=== PATIENT | female | born 1975 | race African-American/Black ===

== ENCOUNTER 2018-01-05 10:06 | Inpatient (IN) ==
[2018-01-05] MEDS: LACTATED RINGERS 1,000 ML IV SCH ×2 (11:10→23:23)
[2018-01-05] MEDS: ONDANSETRON 4 MG/2 ML VIAL IV PRN (11:11)
[2018-01-05 11:27] LABS: Basophils % 0.4 % (0.0-0.8); Eosinophils % 0.6 % (0.00-10.9); Hematocrit 39.4 VOL% (35.7-47.0); Hemoglobin 13.9 GM/DL (12.0-16.0); Immature Granulocytes % 0.4 %; Immature Granulocytes Absolute 0.02 #; Lymphocytes # 1.6 10*3/uL (1.4-4.0); Lymphocytes % 33.5 % (21.3-54.2); Mean Corpuscular HGB Conc 35.3 GM/DL (32-36); Mean Corpuscular Hemoglobin 34 PG (27-34); Mean Corpuscular Volume 94.9 FL (87-102); Mean Platelet Volume 10.6 FL (9.6-12.0); Monocytes # 0.4 10*3/uL (0.11-0.8); Monocytes % 8.1 % (1.7-12.7); Neutrophils # 2.7 10*3/uL (1.4-7.4); Platelet Count 285 T/CUMM (130-400); Red Blood Count 4.15 MC/CUMM (3.8-5.5); Red Cell Distribution Width 12.3 % (9.3-17.3); White Blood Count 4.8 T/CUMM (4-12)
[2018-01-05 11:45] LABS: Apearance,Urine Slightly Hazy (Clear); Bacteria,Urine Occasional /HPF (Few); Bilirubin,Urine Negative (Negative); Blood, Urine Negative (Negative); Glucose,Urine (UA) Negative (Negative); Hyaline Casts,Urine 1 /LPF (0-3); Ketones,Urine 80 mg/dL (Negative); Mucus,Urine Occasional /LPF (Occasional); Nitrite,Urine Negative (Negative); Protein,Urine Negative; RBC,Urine 1 /HPF (0-4); Squamous Epithelial Cell,Urine Occasional /HPF (0-10); Urine Color Yellow (Yellow); Urine Specific Gravity 1.017 (1.001-1.035); WBC,Urine 3 /HPF (0-6)
[2018-01-05 11:46] LABS: Albumin 3.9 G/DL (3.4-5.0); Bilirubin,Total 0.6 MG/DL (0.2-1.0); Calcium 9.9 MG/DL (8.5-10.1); Osmolality,Calculated 267.2 MOS/KG (273-304); Potassium 3.3 MMOL/L (3.5-5.1)
[2018-01-05] MEDS ORDERED: ACETAMINOPHEN 325 MG TABLET PO PRN (13:04)
[2018-01-05] MEDS ORDERED: traZODone 50 MG TABLET PO PRN (13:04)
[2018-01-05] MEDS ORDERED: ENOXAPARIN 40 MG/0.4 ML SYRINGE SUBCUT SCH (13:30)
[2018-01-05] MEDS: PANTOPRAZOLE 20 MG TABLET PO SCH (13:50)
[2018-01-05] MEDS: cefTRIAXone 1,000 MG in SYRINGE 1 EACH IV SCH (16:40)
[2018-01-05] MEDS: POTASSIUM CHLORIDE 20 MEQ TABLET PO PRN ×3 (19:51→23:52)
[2018-01-06] MEDS: LACTATED RINGERS 1,000 ML IV SCH ×3 (00:56→20:30)
[2018-01-06] MEDS: ONDANSETRON 4 MG/2 ML VIAL IV PRN ×4 (02:20→23:23)
[2018-01-06 06:55] LABS: Immature Granulocytes Absolute 0.01 #; Monocytes # 0.5 10*3/uL (0.11-0.8)
[2018-01-06 07:12] LABS: Basophils % 0.7 % (0.0-0.8); Eosinophils % 0.7 % (0.00-10.9); Hematocrit 32.9 VOL% (35.7-47.0); Immature Granulocytes % 0.2 %; Lymphocytes # 1.9 10*3/uL (1.4-4.0); Lymphocytes % 44.6 % (21.3-54.2); Mean Corpuscular Hemoglobin 33 PG (27-34); Mean Corpuscular Volume 94.5 FL (87-102); Mean Platelet Volume 10.7 FL (9.6-12.0); Monocytes % 11.1 % (1.7-12.7); Neutrophils # 1.8 10*3/uL (1.4-7.4); Neutrophils % 42.7 % (38.7-73.9); Platelet Count 232 T/CUMM (130-400); Red Blood Count 3.48 MC/CUMM (3.8-5.5); Red Cell Distribution Width 12.2 % (9.3-17.3); White Blood Count 4.2 T/CUMM (4-12)
[2018-01-06 07:13] LABS: Hemoglobin 11.5 GM/DL (12.0-16.0)
[2018-01-06 07:39] LABS: Albumin 3.1 G/DL (3.4-5.0); Bilirubin,Total 0.9 MG/DL (0.2-1.0); Calcium 8.9 MG/DL (8.5-10.1); Osmolality,Calculated 271.8 MOS/KG (273-304); Potassium 3.4 MMOL/L (3.5-5.1); Thyroid Stimulating Hormone 5.74 uIU/ml (0.358-3.74); Total Protein 7.1 G/DL (6.4-8.3)
[2018-01-06] MEDS ORDERED: LIDOCAINE 2% 5 ML VIAL ONE (12:17)
[2018-01-06] MEDS ORDERED: PROPOFOL 200 MG/20 ML VIAL IV ONE (12:17)
[2018-01-06] MEDS ORDERED: ONDANSETRON 4 MG/2 ML VIAL ONE ×2 (12:45→12:54)
[2018-01-06] MEDS: PANTOPRAZOLE 20 MG TABLET PO SCH (13:50)
[2018-01-06] MEDS: cefTRIAXone 1,000 MG in SYRINGE 1 EACH IV SCH (20:30)
[2018-01-07] MEDS: LACTATED RINGERS 1,000 ML IV SCH ×2 (01:52→10:12)
[2018-01-07 06:49] LABS: Basophils % 0.6 % (0.0-0.8); Eosinophils % 1.1 % (0.00-10.9); Hematocrit 31.3 VOL% (35.7-47.0); Immature Granulocytes % 0.3 %; Immature Granulocytes Absolute 0.01 #; Lymphocytes # 1.3 10*3/uL (1.4-4.0); Lymphocytes % 35.8 % (21.3-54.2); Mean Corpuscular HGB Conc 35.1 GM/DL (32-36); Mean Corpuscular Hemoglobin 33 PG (27-34); Mean Corpuscular Volume 94.8 FL (87-102); Mean Platelet Volume 10.6 FL (9.6-12.0); Monocytes # 0.4 10*3/uL (0.11-0.8); Monocytes % 9.6 % (1.7-12.7); Neutrophils # 1.9 10*3/uL (1.4-7.4); Neutrophils % 52.6 % (38.7-73.9); Platelet Count 225 T/CUMM (130-400); Red Cell Distribution Width 12.6 % (9.3-17.3); White Blood Count 3.6 T/CUMM (4-12)
[2018-01-07 07:05] LABS: Calcium 8.9 MG/DL (8.5-10.1); Osmolality,Calculated 272.5 MOS/KG (273-304); Potassium 3.3 MMOL/L (3.5-5.1)
[2018-01-07] MEDS: PANTOPRAZOLE 20 MG TABLET PO SCH (09:01)
[2018-01-07] MEDS ORDERED: MAGNESIUM HYDROXIDE SUSP 30 ML UDCUP PO ONE (09:25)
[2018-01-07] MEDS: DOCUSATE SODIUM 100 MG CAPSULE PO SCH ×2 (09:40→20:38)
[2018-01-07] MEDS: DEXT 5% NACL 0.45% KCL 20 MEQ 20 MEQ/1,000 ML BAG IV SCH ×2 (10:13→20:37)
[2018-01-07] MEDS ORDERED: BISACODYL 10 MG SUPP RECTAL PRN (10:14)
[2018-01-07] MEDS: POTASSIUM CHLORIDE 20 MEQ TABLET PO PRN (10:29)
[2018-01-07 13:11] LABS: Apearance,Urine CLEAR (Clear); Bacteria,Urine Occasional /HPF (Few); Bilirubin,Urine Negative (Negative); Blood, Urine Negative (Negative); Glucose,Urine (UA) Negative (Negative); Ketones,Urine 80 mg/dL (Negative); Mucus,Urine Occasional /LPF (Occasional); Nitrite,Urine Negative (Negative); Protein,Urine Negative; RBC,Urine 3 /HPF (0-4); Squamous Epithelial Cell,Urine Occasional /HPF (0-10); Urine Color Yellow (Yellow); Urine Specific Gravity > 1.060 (1.001-1.035); Urine Urobilinogen < 2.0 EU/DL (0.2-1.0); WBC,Urine 4 /HPF (0-6)
[2018-01-07] MEDS: ONDANSETRON 4 MG/2 ML VIAL IV PRN (16:40)
[2018-01-07] MEDS: MORPHINE 2 MG/1 ML SYRINGE IV PRN (16:40)
[2018-01-07] MEDS: PROMETHAZINE 25 MG/1 ML VIAL IM PRN (18:06)
[2018-01-07] MEDS: clonazePAM 0.5 MG TABLET PO PRN (20:38)
[2018-01-08] MEDS: PROMETHAZINE 25 MG/1 ML VIAL IM PRN ×2 (00:47→23:02)
[2018-01-08] MEDS: MORPHINE 2 MG/1 ML SYRINGE IV PRN ×2 (00:47→18:43)
[2018-01-08] MEDS: DEXT 5% NACL 0.45% KCL 20 MEQ 20 MEQ/1,000 ML BAG IV SCH ×2 (04:54→13:18)
[2018-01-08 06:30] LABS: Basophils % 0.3 % (0.0-0.8); Eosinophils % 1.4 % (0.00-10.9); Hematocrit 30.6 VOL% (35.7-47.0); Hemoglobin 10.9 GM/DL (12.0-16.0); Immature Granulocytes % 0.3 %; Immature Granulocytes Absolute 0.01 #; Lymphocytes # 1.2 10*3/uL (1.4-4.0); Mean Corpuscular HGB Conc 35.6 GM/DL (32-36); Mean Corpuscular Hemoglobin 33 PG (27-34); Mean Corpuscular Volume 93.9 FL (87-102); Mean Platelet Volume 10.2 FL (9.6-12.0); Monocytes # 0.2 10*3/uL (0.11-0.8); Monocytes % 7.7 % (1.7-12.7); Neutrophils # 1.4 10*3/uL (1.4-7.4); Neutrophils % 48.3 % (38.7-73.9); Platelet Count 200 T/CUMM (130-400); Red Blood Count 3.26 MC/CUMM (3.8-5.5); Red Cell Distribution Width 12.4 % (9.3-17.3); White Blood Count 2.9 T/CUMM (4-12)
[2018-01-08 06:50] LABS: Macrocytosis 1+; Platelet Estimate Normal
[2018-01-08 06:56] LABS: Calcium 8.6 MG/DL (8.5-10.1); Osmolality,Calculated 274.5 MOS/KG (273-304); Potassium 3.3 MMOL/L (3.5-5.1)
[2018-01-08] MEDS: PANTOPRAZOLE 40 MG TABLET PO SCH (09:16)
[2018-01-08] MEDS: DOCUSATE SODIUM 100 MG CAPSULE PO SCH (09:16)
[2018-01-08] MEDS: clonazePAM 0.5 MG TABLET PO PRN ×2 (09:16→23:02)
[2018-01-08] MEDS: POTASSIUM CHLORIDE RIDER 10 MEQ in PREMIX 1 EACH IV PRN ×3 (14:38→20:47)
[2018-01-08] MEDS: ONDANSETRON 4 MG/2 ML VIAL IV PRN (21:42)
[2018-01-09] MEDS: MORPHINE 2 MG/1 ML SYRINGE IV PRN ×3 (02:58→23:05)
[2018-01-09 05:45] LABS: Basophils % 0.3 % (0.0-0.8); Eosinophils % 1.2 % (0.00-10.9); Hematocrit 32.3 VOL% (35.7-47.0); Hemoglobin 11.3 GM/DL (12.0-16.0); Lymphocytes # 1.4 10*3/uL (1.4-4.0); Lymphocytes % 43.6 % (21.3-54.2); Mean Corpuscular Hemoglobin 33 PG (27-34); Mean Corpuscular Volume 94.4 FL (87-102); Mean Platelet Volume 10.6 FL (9.6-12.0); Monocytes # 0.2 10*3/uL (0.11-0.8); Monocytes % 7.3 % (1.7-12.7); Neutrophils # 1.6 10*3/uL (1.4-7.4); Neutrophils % 47.6 % (38.7-73.9); Platelet Count 198 T/CUMM (130-400); Red Blood Count 3.42 MC/CUMM (3.8-5.5); Red Cell Distribution Width 12.6 % (9.3-17.3); White Blood Count 3.3 T/CUMM (4-12)
[2018-01-09 06:04] LABS: Calcium 8.5 MG/DL (8.5-10.1); Osmolality,Calculated 279.1 MOS/KG (273-304); Potassium 3.8 MMOL/L (3.5-5.1)
[2018-01-09] MEDS: DEXT 5% NACL 0.45% KCL 20 MEQ 20 MEQ/1,000 ML BAG IV SCH (06:10)
[2018-01-09] MEDS: DOCUSATE SODIUM 100 MG CAPSULE PO SCH ×3 (06:45→21:06)
[2018-01-09] MEDS: PANTOPRAZOLE 40 MG TABLET PO SCH (08:23)
[2018-01-09] MEDS: POTASSIUM CHLORIDE RIDER 10 MEQ in PREMIX 1 EACH IV PRN ×2 (08:23→10:23)
[2018-01-09] MEDS: ONDANSETRON 4 MG/2 ML VIAL IV PRN (11:37)
[2018-01-09] MEDS ORDERED: AMINO ACIDS/DEXT/LYTES 5-15% 2,000 ML IV SCH (17:00)
[2018-01-09] MEDS: FAT EMULSION 20% 250 ML IV SCH (17:29)
[2018-01-10] MEDS: PANTOPRAZOLE 40 MG TABLET PO SCH (09:10)
[2018-01-10] MEDS: DOCUSATE SODIUM 100 MG CAPSULE PO SCH ×2 (09:10→22:14)
[2018-01-10] MEDS: clonazePAM 0.5 MG TABLET PO PRN (09:40)
[2018-01-10] MEDS ORDERED: PROPOFOL 200 MG/20 ML VIAL IV ONE (13:00)
[2018-01-10] MEDS ORDERED: ONDANSETRON 4 MG/2 ML VIAL ONE ×2 (13:00→14:00)
[2018-01-10] MEDS ORDERED: LIDOCAINE 1% 5 ML VIAL ONE (13:00)
[2018-01-10] MEDS ORDERED: LABETALOL 100 MG/20 ML VIAL IV ONE (13:00)
[2018-01-10] MEDS: ONDANSETRON 4 MG/2 ML VIAL IV PRN ×2 (14:00→20:02)
[2018-01-10] MEDS ORDERED: fentaNYL 100 MCG/2 ML VIAL ONE (14:06)
[2018-01-10] MEDS ORDERED: fentaNYL 100 MCG/2 ML VIAL IV ONE (14:12)
[2018-01-10] MEDS: HYDROmorphone 2 MG/1 ML VIAL IV PRN ×2 (15:30→18:26)
[2018-01-10] MEDS ORDERED: DEXTROSE 10% 1,000 ML IV PRN (17:00)
[2018-01-10] MEDS: FAT EMULSION 20% 250 ML IV SCH (17:28)
[2018-01-10] MEDS: MULTIVITAMIN INJ 10 ML, TRACE ELEMENTS (5) 1 ML in AMINO ACIDS/DEXT/LYTES 4.25-5% 2,000 ML IV SCH (17:28)
[2018-01-11] MEDS: HYDROmorphone 2 MG/1 ML VIAL IV PRN (04:37)
[2018-01-11 06:56] LABS: Calcium 8.4 MG/DL (8.5-10.1); Osmolality,Calculated 278.4 MOS/KG (273-304); Potassium 3.7 MMOL/L (3.5-5.1)
[2018-01-11 07:00] LABS: Prealbumin 9.7 MG/DL (20-40)
[2018-01-11] MEDS: PANTOPRAZOLE 40 MG TABLET PO SCH (09:46)
[2018-01-11] MEDS: DOCUSATE SODIUM 100 MG CAPSULE PO SCH ×2 (09:47→22:08)
[2018-01-11] MEDS: MORPHINE 2 MG/1 ML SYRINGE IV PRN ×4 (09:49→22:54)
[2018-01-11] MEDS: MULTIVITAMIN INJ 10 ML, TRACE ELEMENTS (5) 1 ML in AMINO ACIDS/DEXT/LYTES 4.25-5% 2,000 ML IV SCH (14:54)
[2018-01-11] MEDS: ONDANSETRON 4 MG/2 ML VIAL IV PRN ×2 (15:03→22:11)
[2018-01-11] MEDS: FAT EMULSION 20% 250 ML IV SCH (15:29)
[2018-01-11] MEDS: PROMETHAZINE 25 MG/1 ML VIAL IM PRN (18:55)
[2018-01-11] MEDS ORDERED: PANTOPRAZOLE 40 MG VIAL IV ONE (21:48)
[2018-01-12] MEDS: PROMETHAZINE 25 MG/1 ML VIAL IM PRN (02:21)
[2018-01-12] MEDS: MORPHINE 2 MG/1 ML SYRINGE IV PRN ×2 (06:01→16:18)
[2018-01-12] MEDS: ONDANSETRON 4 MG/2 ML VIAL IV PRN ×2 (06:02→12:16)
[2018-01-12] MEDS: DOCUSATE SODIUM 100 MG CAPSULE PO SCH ×2 (09:31→20:51)
[2018-01-12] MEDS ORDERED: HYDROmorphone 2 MG/1 ML VIAL IV PRN (09:36)
[2018-01-12] MEDS: PANTOPRAZOLE 40 MG VIAL IV SCH (11:01)
[2018-01-12] MEDS: HYDROmorphone 2 MG/1 ML VIAL IV PRN ×2 (11:01→18:20)
[2018-01-12] MEDS ORDERED: ONDANSETRON 4 MG/2 ML VIAL ONE (12:12)
[2018-01-12] MEDS ORDERED: fentaNYL 100 MCG/2 ML VIAL ONE ×2 (12:19→14:59)
[2018-01-12] MEDS ORDERED: FAMOTIDINE 20 MG/2 ML VIAL IV ONE (12:27)
[2018-01-12] MEDS ORDERED: LIDOCAINE 1% 5 ML VIAL ONE (13:34)
[2018-01-12] MEDS ORDERED: DEXAMETHASONE 4 MG/1 ML VIAL ONE (13:34)
[2018-01-12] MEDS ORDERED: LABETALOL 100 MG/20 ML VIAL IV ONE (13:34)
[2018-01-12] MEDS ORDERED: PROPOFOL 200 MG/20 ML VIAL IV ONE (13:34)
[2018-01-12] MEDS ORDERED: fentaNYL 100 MCG/2 ML VIAL IV ONE (15:01)
[2018-01-12] MEDS: FAT EMULSION 20% 250 ML IV SCH (15:51)
[2018-01-12] MEDS: MULTIVITAMIN INJ 10 ML, TRACE ELEMENTS (5) 1 ML in AMINO ACIDS/DEXT/LYTES 4.25-5% 2,000 ML IV SCH (15:52)
[2018-01-12] MEDS ORDERED: ceFAZolin 1,000 MG in SYRINGE 1 EACH IV ONE (15:57)
[2018-01-13] MEDS: MORPHINE 2 MG/1 ML SYRINGE IV PRN ×2 (01:25→07:54)
[2018-01-13] MEDS ORDERED: FAMOTIDINE 20 MG TABLET PO ONE (06:00)
[2018-01-13] MEDS ORDERED: DIAZEPAM 5 MG TABLET PO ONE (06:00)
[2018-01-13] MEDS: PANTOPRAZOLE 40 MG VIAL IV SCH (08:00)
[2018-01-13] MEDS: DOCUSATE SODIUM 100 MG CAPSULE PO SCH (08:25)
[2018-01-13] MEDS ORDERED: ACETAMINOPHEN 325 MG/10.15 ML UDCUP PO PRN (09:00)
[2018-01-13] MEDS ORDERED: clonazePAM 0.5 MG TABLET PEG PRN (09:00)
[2018-01-13] MEDS ORDERED: traZODone 50 MG TABLET PEG PRN (09:00)
[2018-01-13] MEDS ORDERED: BUPIVACAINE 0.25% 50 ML VIAL ONE (09:02)
[2018-01-13] MEDS ORDERED: HEPARIN 5,000 UNIT/1 ML VIAL ONE (09:02)
[2018-01-13] MEDS ORDERED: ceFAZolin 1,000 MG in SYRINGE 1 EACH IV ONE (10:30)
[2018-01-13] MEDS: LANSOPRAZOLE ODT 30 MG TABLET PEG SCH (11:24)
[2018-01-13] MEDS: DOCUSATE SODIUM 100 MG/10 ML UDCUP PEG SCH ×2 (11:24→20:39)
[2018-01-13] MEDS ORDERED: TISSUE ADHESIVE 1 EACH APPLICATOR TOP ONE (11:47)
[2018-01-13] MEDS ORDERED: LABETALOL 20 MG/4 ML SYRINGE IV ONE (12:16)
[2018-01-13] MEDS ORDERED: fentaNYL 100 MCG/2 ML VIAL ONE (12:33)
[2018-01-13] MEDS ORDERED: PROPOFOL 200 MG/20 ML VIAL IV ONE (12:33)
[2018-01-13] MEDS ORDERED: MIDAZOLAM 2 MG/2 ML VIAL ONE (12:33)
[2018-01-13] MEDS ORDERED: ONDANSETRON 4 MG/2 ML VIAL ONE (12:33)
[2018-01-13] MEDS ORDERED: SODIUM CHLORIDE 0.9% 100 ML IV ONE (12:34)
[2018-01-13] MEDS: FAT EMULSION 20% 250 ML IV SCH (14:00)
[2018-01-13] MEDS: HYDROcod/ACETAMIN 7.5-325 MG/15 ML UDCUP PEG PRN ×2 (16:13→19:36)
[2018-01-13] MEDS: MULTIVITAMIN INJ 10 ML, TRACE ELEMENTS (5) 1 ML in AMINO ACIDS/DEXT/LYTES 4.25-5% 2,000 ML IV SCH (19:03)
[2018-01-14] MEDS: HYDROcod/ACETAMIN 7.5-325 MG/15 ML UDCUP PEG PRN ×4 (01:14→18:52)
[2018-01-14 04:27] LABS: Calcium 8.4 MG/DL (8.5-10.1); Osmolality,Calculated 278.5 MOS/KG (273-304); Potassium 3.7 MMOL/L (3.5-5.1)
[2018-01-14] MEDS ORDERED: traZODone 50 MG TABLET PO PRN (09:06)
[2018-01-14] MEDS: DOCUSATE SODIUM 100 MG/10 ML UDCUP PEG SCH ×2 (09:07→23:02)
[2018-01-14] MEDS: LANSOPRAZOLE ODT 30 MG TABLET PEG SCH (09:08)
[2018-01-14] MEDS ORDERED: DIAZEPAM 2 MG TABLET PO SCH (09:30)
[2018-01-14] MEDS: ONDANSETRON 4 MG/2 ML VIAL IV PRN ×2 (10:06→16:55)
[2018-01-14] MEDS: DIAZEPAM 2 MG TABLET PEG SCH ×2 (10:08→22:57)
[2018-01-14] MEDS: MULTIVITAMIN INJ 10 ML, TRACE ELEMENTS (5) 1 ML in AMINO ACIDS/DEXT/LYTES 4.25-5% 2,000 ML IV SCH (14:25)
[2018-01-14] MEDS: FAT EMULSION 20% 250 ML IV SCH (14:25)
[2018-01-14] MEDS: PROMETHAZINE 25 MG/1 ML VIAL IM PRN (20:14)
[2018-01-15] MEDS: HYDROcod/ACETAMIN 7.5-325 MG/15 ML UDCUP PEG PRN ×5 (01:08→22:11)
[2018-01-15] MEDS: PROMETHAZINE 25 MG/1 ML VIAL IM PRN (09:17)
[2018-01-15] MEDS: DOCUSATE SODIUM 100 MG/10 ML UDCUP PEG SCH ×2 (09:18→19:59)
[2018-01-15] MEDS: DIAZEPAM 2 MG TABLET PEG SCH ×2 (11:24→22:12)
[2018-01-15] MEDS: LANSOPRAZOLE ODT 30 MG TABLET PEG SCH (11:24)
[2018-01-15] MEDS: MULTIVITAMIN INJ 10 ML, TRACE ELEMENTS (5) 1 ML in AMINO ACIDS/DEXT/LYTES 4.25-5% 2,000 ML IV SCH (12:07)
[2018-01-15] MEDS: ONDANSETRON 4 MG/2 ML VIAL IV PRN ×2 (14:18→19:58)
[2018-01-15] MEDS: FAT EMULSION 20% 250 ML IV SCH (14:20)
[2018-01-16] MEDS: HYDROcod/ACETAMIN 7.5-325 MG/15 ML UDCUP PEG PRN ×4 (03:21→21:12)
[2018-01-16 06:14] LABS: Calcium 8.3 MG/DL (8.5-10.1); Osmolality,Calculated 281.3 MOS/KG (273-304); Potassium 4.5 MMOL/L (3.5-5.1); Prealbumin 15.9 MG/DL (20-40)
[2018-01-16] MEDS: ONDANSETRON 4 MG/2 ML VIAL IV PRN ×2 (08:57→14:21)
[2018-01-16] MEDS: DOCUSATE SODIUM 100 MG/10 ML UDCUP PEG SCH ×3 (08:59→21:28)
[2018-01-16] MEDS: LANSOPRAZOLE ODT 30 MG TABLET PEG SCH (09:00)
[2018-01-16] MEDS: DIAZEPAM 2 MG TABLET PEG SCH ×2 (09:00→21:11)
[2018-01-16] MEDS: MULTIVITAMIN INJ 10 ML, TRACE ELEMENTS (5) 1 ML in AMINO ACIDS/DEXT/LYTES 4.25-5% 2,000 ML IV SCH (10:38)
[2018-01-16] MEDS: FAT EMULSION 20% 250 ML IV SCH (14:10)
[2018-01-17] MEDS: HYDROmorphone 2 MG/1 ML VIAL IV PRN ×3 (00:05→22:57)
[2018-01-17] MEDS: HYDROcod/ACETAMIN 7.5-325 MG/15 ML UDCUP PEG PRN ×2 (09:14→15:25)
[2018-01-17] MEDS: LANSOPRAZOLE ODT 30 MG TABLET PEG SCH (09:15)
[2018-01-17] MEDS: DOCUSATE SODIUM 100 MG/10 ML UDCUP PEG SCH (09:15)
[2018-01-17] MEDS: DIAZEPAM 2 MG TABLET PEG SCH ×2 (09:15→22:57)
[2018-01-17] MEDS ORDERED: DOCUSATE SODIUM 100 MG/10 ML UDCUP PEG PRN (11:00)
[2018-01-17] MEDS: POLYETHYLENE GLYCOL POWDER 17 GM PACK PEG SCH ×2 (13:50→22:56)
[2018-01-18] MEDS: HYDROcod/ACETAMIN 7.5-325 MG/15 ML UDCUP PEG PRN ×4 (02:06→21:14)
[2018-01-18] MEDS: HYDROmorphone 2 MG/1 ML VIAL IV PRN (04:55)
[2018-01-18 06:13] LABS: Calcium 8.3 MG/DL (8.5-10.1); Osmolality,Calculated 275.5 MOS/KG (273-304); Potassium 4.4 MMOL/L (3.5-5.1)
[2018-01-18] MEDS: POLYETHYLENE GLYCOL POWDER 17 GM PACK PEG SCH ×2 (11:40→21:15)
[2018-01-18] MEDS: LANSOPRAZOLE ODT 30 MG TABLET PEG SCH (11:40)
[2018-01-18] MEDS: DIAZEPAM 2 MG TABLET PEG SCH ×2 (11:40→21:24)
[2018-01-18] MEDS: ONDANSETRON 4 MG/2 ML VIAL IV PRN (15:06)
[2018-01-19] MEDS: HYDROcod/ACETAMIN 7.5-325 MG/15 ML UDCUP PEG PRN ×3 (01:05→10:00)
[2018-01-19 06:16] LABS: Calcium 8.8 MG/DL (8.5-10.1); Osmolality,Calculated 274.5 MOS/KG (273-304); Potassium 4.2 MMOL/L (3.5-5.1)
[2018-01-19 07:46] VITALS: BP 147/80
[2018-01-19] MEDS: DIAZEPAM 2 MG TABLET PEG SCH (09:59)
[2018-01-19] MEDS: POLYETHYLENE GLYCOL POWDER 17 GM PACK PEG SCH (09:59)
[2018-01-19] MEDS: LANSOPRAZOLE ODT 30 MG TABLET PEG SCH (09:59)
== END 2018-01-19 11:31 | disposition home health service (06) | DRG 222 ==
LOC: N.OB → SUATTDRO 13:07 → N.2E 14:17 → UNDODISIN 01-16 19:58
PROVIDERS: ADMIT Obstetrics & Gynecology; ATTEND Internal Medicine

== ENCOUNTER 2018-01-25 20:09 | Inpatient (IN) ==
[2018-01-25] MEDS ORDERED: ONDANSETRON 4 MG/2 ML VIAL IV STA ×2 (20:47→22:08)
[2018-01-25] MEDS ORDERED: HYDROmorphone 2 MG/1 ML VIAL IV STA (20:47)
[2018-01-25] MEDS ORDERED: SODIUM CHLORIDE 0.9% 1,000 ML IV STA (20:47)
[2018-01-25] MEDS ORDERED: ONDANSETRON 4 MG/2 ML VIAL ONE ×2 (21:09→21:56)
[2018-01-25] MEDS ORDERED: MORPHINE 2 MG/1 ML SYRINGE IV STA (21:09)
[2018-01-25] MEDS ORDERED: MORPHINE 2 MG/1 ML SYRINGE ONE (21:10)
[2018-01-25 21:19] LABS: Basophils % 0.5 % (0.0-0.8); Eosinophils # 0.1 10*3/uL (0.0-0.87); Hematocrit 34.2 VOL% (35.7-47.0); Hemoglobin 11.5 GM/DL (12.0-16.0); Immature Granulocytes % 0.5 %; Immature Granulocytes Absolute 0.04 #; Lymphocytes # 1.3 10*3/uL (1.4-4.0); Lymphocytes % 16.4 % (21.3-54.2); Mean Corpuscular HGB Conc 33.6 GM/DL (32-36); Mean Corpuscular Hemoglobin 33 PG (27-34); Mean Corpuscular Volume 98.6 FL (87-102); Mean Platelet Volume 9.9 FL (9.6-12.0); Monocytes # 0.6 10*3/uL (0.11-0.8); Monocytes % 6.7 % (1.7-12.7); Neutrophils # 6.1 10*3/uL (1.4-7.4); Neutrophils % 74.9 % (38.7-73.9); Platelet Count 223 T/CUMM (130-400); Red Blood Count 3.47 MC/CUMM (3.8-5.5); Red Cell Distribution Width 14.1 % (9.3-17.3); White Blood Count 8.2 T/CUMM (4-12)
[2018-01-25 21:34] LABS: Apearance,Urine CLOUDY (Clear); Bilirubin,Urine Negative (Negative); Blood, Urine Negative (Negative); Glucose,Urine (UA) Negative (Negative); Ketones,Urine 80 mg/dL (Negative); Mucus,Urine Few /LPF (Occasional); Nitrite,Urine Negative (Negative); Protein,Urine 30 MG/DL; Urine Color Amber (Yellow); Urine Specific Gravity 1.026 (1.001-1.035)
[2018-01-25 21:35] LABS: Bacteria,Urine Few /HPF (Few)
[2018-01-25 21:40] LABS: Barbiturates Screen,Urine Negative (Negative); Benzodiazepines Screen,Urine Positive (Negative); Cannabinoid Screen,Urine Negative (Negative); Opiate Screen,Urine Positive (Negative); Phencyclidine Screen,Urine Negative (Negative)
[2018-01-25 21:47] LABS: Lactic Acid 1.3 MMOL/L (0.4-2.0)
[2018-01-25 21:50] LABS: Alanine Aminotransferase 16 U/L (13-56); Albumin 3.7 G/DL (3.4-5.0); Alkaline Phosphatase 94 U/L (45-117); Amylase 35 U/L (25-115); Aspartate Amino Transferase 16 U/L (0-37); Blood Urea Nitrogen 12 MG/DL (7-18); Calcium 9.3 MG/DL (8.5-10.1); Glucose 89 MG/DL (74-106); Osmolality,Calculated 271.8 MOS/KG (273-304); Potassium 3.5 MMOL/L (3.5-5.1); Sodium 137 MMOL/L (136-145); Total Protein 8.6 G/DL (6.4-8.3); Troponin I Only < 0.015 NG/ML (0.00-0.045)
[2018-01-26] MEDS ORDERED: MORPHINE 2 MG/1 ML SYRINGE IV STA (00:31)
[2018-01-26] MEDS ORDERED: MORPHINE 2 MG/1 ML SYRINGE ONE (00:32)
[2018-01-26] MEDS ORDERED: SODIUM CHLORIDE 0.45% 1,000 ML IV SCH (03:19)
[2018-01-26] MEDS: MORPHINE 2 MG/1 ML SYRINGE IV PRN ×2 (04:31→08:38)
[2018-01-26] MEDS: ONDANSETRON 4 MG/2 ML VIAL IV PRN ×2 (04:34→08:38)
[2018-01-26] MEDS ORDERED: PANTOPRAZOLE 40 MG VIAL IV SCH (09:00)
[2018-01-26 11:29] VITALS: BP 126/97
== END 2018-01-26 12:30 | disposition home or self-care (01) | DRG 240 ==
LOC: N.ED 20:09 → N.EDINP 01-26 01:47 → N.3E 01-26 03:25
PROVIDERS: ADMIT Internal Medicine Hematology & Oncology; ATTEND Internal Medicine Hematology & Oncology

== ENCOUNTER 2018-02-10 10:04 | Inpatient (IN) ==
[2018-02-10] MEDS ORDERED: SODIUM CHLORIDE 0.9% 1,000 ML IV STA (11:04)
[2018-02-10] MEDS ORDERED: PROMETHAZINE 25 MG/1 ML VIAL IV STA (11:04)
[2018-02-10] MEDS ORDERED: MORPHINE 2 MG/1 ML SYRINGE IV STA (11:07)
[2018-02-10] MEDS ORDERED: PROMETHAZINE 25 MG/1 ML VIAL ONE (11:17)
[2018-02-10] MEDS ORDERED: MORPHINE 4 MG/1 ML VIAL ONE (11:21)
[2018-02-10 12:08] LABS: Basophils % 0.2 % (0.0-0.8); Eosinophils % 0.1 % (0.00-10.9); Hematocrit 34.4 VOL% (35.7-47.0); Hemoglobin 11.2 GM/DL (12.0-16.0); Immature Granulocytes % 0.4 %; Immature Granulocytes Absolute 0.04 #; Lymphocytes # 0.9 10*3/uL (1.4-4.0); Lymphocytes % 9.4 % (21.3-54.2); Mean Corpuscular HGB Conc 32.6 GM/DL (32-36); Mean Corpuscular Hemoglobin 32 PG (27-34); Mean Corpuscular Volume 99.4 FL (87-102); Mean Platelet Volume 11.8 FL (9.6-12.0); Monocytes # 0.6 10*3/uL (0.11-0.8); Monocytes % 6.4 % (1.7-12.7); Neutrophils # 7.9 10*3/uL (1.4-7.4); Neutrophils % 83.5 % (38.7-73.9); Platelet Count 235 T/CUMM (130-400); Red Blood Count 3.46 MC/CUMM (3.8-5.5); Red Cell Distribution Width 14.6 % (9.3-17.3); White Blood Count 9.5 T/CUMM (4-12)
[2018-02-10 12:17] LABS: Apearance,Urine CLOUDY (Clear); Bacteria,Urine Occasional /HPF (Few); Bilirubin,Urine Negative (Negative); Blood, Urine Negative (Negative); Glucose,Urine (UA) Negative (Negative); Hyaline Casts,Urine 4 /LPF (0-3); Ketones,Urine 5 mg/dL (Negative); Mucus,Urine Occasional /LPF (Occasional); Nitrite,Urine Negative (Negative); Protein,Urine 100 MG/DL; RBC,Urine 4 /HPF (0-4); Squamous Epithelial Cell,Urine Few /HPF (0-10); Urine Color Amber (Yellow); Urine Specific Gravity 1.031 (1.001-1.035); WBC,Urine 12 /HPF (0-6)
[2018-02-10 12:25] LABS: INR 1.1; Partial Thromboplastin Time 21.7 SECS (0-40)
[2018-02-10 12:29] LABS: Lactic Acid 1.5 MMOL/L (0.4-2.0)
[2018-02-10 12:31] LABS: Albumin 3.7 G/DL (3.4-5.0); Bilirubin,Total 0.6 MG/DL (0.2-1.0); Calcium 9.8 MG/DL (8.5-10.1); Osmolality,Calculated 316.7 MOS/KG (273-304); Potassium 3.1 MMOL/L (3.5-5.1); Total Protein 8.7 G/DL (6.4-8.3)
[2018-02-10 12:35] LABS: Troponin I Only < 0.015 NG/ML (0.00-0.045)
[2018-02-10] MEDS ORDERED: HYDROmorphone 2 MG/1 ML VIAL IV STA (13:28)
[2018-02-10] MEDS ORDERED: HYDROmorphone 2 MG/1 ML VIAL ONE (13:32)
[2018-02-10] MEDS ORDERED: POTASSIUM CHLORIDE RIDER 20 MEQ in PREMIX 1 EACH IV PRN (14:51)
[2018-02-10] MEDS ORDERED: ENOXAPARIN 40 MG/0.4 ML SYRINGE SUBCUT SCH (15:00)
[2018-02-10] MEDS ORDERED: fentaNYL 12 MCG/HR PATCH TRANSDERM SCH (15:30)
[2018-02-10] MEDS: MORPHINE 4 MG/1 ML VIAL IV PRN ×3 (17:00→23:56)
[2018-02-10] MEDS: METOPROLOL TARTRATE 5 MG/5 ML VIAL IV PRN (17:02)
[2018-02-10] MEDS: ONDANSETRON 4 MG/2 ML VIAL IV PRN (17:08)
[2018-02-10] MEDS: SODIUM CHLORIDE 0.45% 1,000 ML IV SCH (17:33)
[2018-02-10] MEDS: ENOXAPARIN 40 MG/0.4 ML SYRINGE SUBCUT SCH (17:36)
[2018-02-10 21:32] LABS: Troponin I Only < 0.015 NG/ML (0.00-0.045)
[2018-02-10] MEDS: POTASSIUM CHLORIDE RIDER 10 MEQ in PREMIX 1 EACH IV PRN (23:56)
[2018-02-11 00:40] LABS: Basophils % 0.3 % (0.0-0.8); Eosinophils % 0.4 % (0.00-10.9); Hematocrit 28.8 VOL% (35.7-47.0); Hemoglobin 9.5 GM/DL (12.0-16.0); Immature Granulocytes % 0.6 %; Immature Granulocytes Absolute 0.05 #; Lymphocytes # 1.1 10*3/uL (1.4-4.0); Lymphocytes % 13.7 % (21.3-54.2); Mean Corpuscular Hemoglobin 32 PG (27-34); Mean Platelet Volume 11.6 FL (9.6-12.0); Monocytes # 0.8 10*3/uL (0.11-0.8); Monocytes % 10.6 % (1.7-12.7); Neutrophils # 5.9 10*3/uL (1.4-7.4); Neutrophils % 74.4 % (38.7-73.9); Platelet Count 205 T/CUMM (130-400); Red Blood Count 2.94 MC/CUMM (3.8-5.5); Red Cell Distribution Width 15.1 % (9.3-17.3); White Blood Count 7.9 T/CUMM (4-12)
[2018-02-11 00:59] LABS: Albumin 3.1 G/DL (3.4-5.0); Bilirubin,Total 0.5 MG/DL (0.2-1.0); Calcium 8.9 MG/DL (8.5-10.1); Osmolality,Calculated 315.6 MOS/KG (273-304); Potassium 2.9 MMOL/L (3.5-5.1); Thyroid Stimulating Hormone 1.54 uIU/ml (0.358-3.74); Total Protein 7.4 G/DL (6.4-8.3)
[2018-02-11 01:07] LABS: Troponin I Only < 0.015 NG/ML (0.00-0.045)
[2018-02-11] MEDS: POTASSIUM CHLORIDE RIDER 10 MEQ in PREMIX 1 EACH IV PRN ×3 (01:35→04:24)
[2018-02-11] MEDS: METOPROLOL TARTRATE 5 MG/5 ML VIAL IV PRN (01:36)
[2018-02-11] MEDS: SODIUM CHLORIDE 0.45% 1,000 ML IV SCH (01:40)
[2018-02-11] MEDS: MORPHINE 4 MG/1 ML VIAL IV PRN ×7 (03:12→22:30)
[2018-02-11] MEDS: ONDANSETRON 4 MG/2 ML VIAL IV PRN ×3 (03:20→22:31)
[2018-02-11 04:28] LABS: Band Neutrophils 1 % (0-10); Eosinophils 1 % (0-10); Lymphocytes 9 % (20-55); Metamyelocytes 2 %; Segmented Neutrophils 82 % (50-85); Total Cells Counted 100
[2018-02-11 04:29] LABS: Polychromasia Few; Target Cells Few
[2018-02-11 04:30] LABS: Hypochromasia 1+; Platelet Estimate Normal
[2018-02-11] MEDS: POTASSIUM CHLORIDE INJ 40 MEQ in DEXTROSE 5% NACL 0.22% 1,000 ML IV SCH ×3 (09:41→22:33)
[2018-02-11] MEDS: PROPRANOLOL 1 MG/1 ML VIAL IV SCH ×3 (09:42→21:25)
[2018-02-11] MEDS ORDERED: HYDROcod/ACETAMIN 7.5-325 MG/15 ML UDCUP PO PRN (12:15)
[2018-02-11] MEDS ORDERED: fentaNYL 25 MCG/HR PATCH TRANSDERM SCH (12:30)
[2018-02-11] MEDS: ENOXAPARIN 40 MG/0.4 ML SYRINGE SUBCUT SCH (16:59)
[2018-02-12] MEDS: MORPHINE 4 MG/1 ML VIAL IV PRN ×3 (01:51→12:01)
[2018-02-12] MEDS: PROPRANOLOL 1 MG/1 ML VIAL IV SCH ×4 (02:40→20:06)
[2018-02-12] MEDS: POTASSIUM CHLORIDE INJ 40 MEQ in DEXTROSE 5% NACL 0.22% 1,000 ML IV SCH ×3 (05:13→18:49)
[2018-02-12 05:23] LABS: Calcium 8.6 MG/DL (8.5-10.1); Osmolality,Calculated 298.4 MOS/KG (273-304)
[2018-02-12] MEDS: fentaNYL 75 MCG/HR PATCH TRANSDERM SCH (13:56)
[2018-02-12] MEDS: MORPHINE 10 MG/1 ML VIAL IV PRN ×3 (15:58→23:55)
[2018-02-12] MEDS: ENOXAPARIN 40 MG/0.4 ML SYRINGE SUBCUT SCH (16:00)
[2018-02-12] MEDS: LORazepam 2 MG/1 ML VIAL IV PRN (20:04)
[2018-02-13] MEDS: POTASSIUM CHLORIDE INJ 40 MEQ in DEXTROSE 5% NACL 0.22% 1,000 ML IV SCH ×2 (01:30→09:03)
[2018-02-13] MEDS: LORazepam 2 MG/1 ML VIAL IV PRN (02:13)
[2018-02-13] MEDS: PROPRANOLOL 1 MG/1 ML VIAL IV SCH ×4 (02:37→21:32)
[2018-02-13 05:16] LABS: Basophils % 0.3 % (0.0-0.8); Eosinophils # 0.1 10*3/uL (0.0-0.87); Eosinophils % 1.4 % (0.00-10.9); Hematocrit 23.9 VOL% (35.7-47.0); Hemoglobin 7.7 GM/DL (12.0-16.0); Immature Granulocytes % 0.9 %; Immature Granulocytes Absolute 0.06 #; Lymphocytes # 1.5 10*3/uL (1.4-4.0); Lymphocytes % 22.8 % (21.3-54.2); Mean Corpuscular HGB Conc 32.2 GM/DL (32-36); Mean Corpuscular Hemoglobin 33 PG (27-34); Mean Corpuscular Volume 101.7 FL (87-102); Mean Platelet Volume 11.5 FL (9.6-12.0); Monocytes # 0.5 10*3/uL (0.11-0.8); Monocytes % 7.9 % (1.7-12.7); Neutrophils # 4.4 10*3/uL (1.4-7.4); Neutrophils % 66.7 % (38.7-73.9); Platelet Count 168 T/CUMM (130-400); Red Blood Count 2.35 MC/CUMM (3.8-5.5); White Blood Count 6.6 T/CUMM (4-12)
[2018-02-13 05:41] LABS: Osmolality,Calculated 287.8 MOS/KG (273-304); Potassium 4.3 MMOL/L (3.5-5.1)
[2018-02-13] MEDS: MORPHINE 10 MG/1 ML VIAL IV PRN ×3 (06:23→18:54)
[2018-02-13] MEDS ORDERED: DEXAMETHASONE INJ 20 MG in SODIUM CHLORIDE 0.9% 50 ML IV ONE (09:50)
[2018-02-13] MEDS: MEPERIDINE 50 MG/1 ML VIAL IV PRN ×2 (10:01→15:22)
[2018-02-13] MEDS ORDERED: PALONOSETRON 0.25 MG/5 ML VIAL IV ONE (10:30)
[2018-02-13] MEDS ORDERED: FOSAPREPITANT 150 MG in SODIUM CHLORIDE 0.9% 100 ML IV ONE (10:30)
[2018-02-13] MEDS ORDERED: FLUOROURACIL 800 MG in SYRINGE 1 EACH IV ONE (11:00)
[2018-02-13] MEDS ORDERED: OXALIPLATIN 170 MG in DEXTROSE 5% 250 ML IV ONE (11:00)
[2018-02-13] MEDS ORDERED: LEUCOVORIN INJ 700 MG, LEUCOVORIN INJ 100 MG in DEXTROSE 5% 250 ML IV ONE (11:00)
[2018-02-13] MEDS: ENOXAPARIN 40 MG/0.4 ML SYRINGE SUBCUT SCH (15:28)
[2018-02-13] MEDS: FLUOROURACIL 1,200 MG in SODIUM CHLORIDE 0.9% 1,000 ML IV SCH (15:47)
[2018-02-14] MEDS: MEPERIDINE 50 MG/1 ML VIAL IV PRN ×5 (02:48→20:43)
[2018-02-14] MEDS: PROPRANOLOL 1 MG/1 ML VIAL IV SCH ×4 (02:48→20:39)
[2018-02-14 06:41] LABS: Basophils % 0.1 % (0.0-0.8); Hematocrit 24.4 VOL% (35.7-47.0); Hemoglobin 7.8 GM/DL (12.0-16.0); Immature Granulocytes % 0.6 %; Immature Granulocytes Absolute 0.06 #; Lymphocytes # 0.5 10*3/uL (1.4-4.0); Lymphocytes % 5.3 % (21.3-54.2); Mean Corpuscular Hemoglobin 32 PG (27-34); Mean Corpuscular Volume 98.8 FL (87-102); Mean Platelet Volume 11.3 FL (9.6-12.0); Monocytes # 0.2 10*3/uL (0.11-0.8); Monocytes % 1.6 % (1.7-12.7); Neutrophils # 8.8 10*3/uL (1.4-7.4); Neutrophils % 92.4 % (38.7-73.9); Platelet Count 172 T/CUMM (130-400); Red Blood Count 2.47 MC/CUMM (3.8-5.5); Red Cell Distribution Width 14.7 % (9.3-17.3); White Blood Count 9.5 T/CUMM (4-12)
[2018-02-14 06:57] LABS: Giant Platelets Few; Hypochromasia 1+; Lymphocytes 4 % (20-55); Ovalocytes Slight; Platelet Estimate Normal; Segmented Neutrophils 91 % (50-85); Total Cells Counted 100
[2018-02-14 07:10] LABS: Albumin 2.2 G/DL (3.4-5.0); Bilirubin,Total 0.7 MG/DL (0.2-1.0); Calcium 8.4 MG/DL (8.5-10.1); Osmolality,Calculated 280.4 MOS/KG (273-304); Potassium 4.7 MMOL/L (3.5-5.1); Total Protein 6.1 G/DL (6.4-8.3)
[2018-02-14] MEDS: POTASSIUM CHLORIDE INJ 40 MEQ in DEXTROSE 5% NACL 0.22% 1,000 ML IV SCH ×4 (07:38→17:17)
[2018-02-14] MEDS: INSULIN REGULAR 100 UNIT/ML SUBCUT SCH ×2 (11:33→18:07)
[2018-02-14] MEDS ORDERED: LYTE IV SCH (12:00)
[2018-02-14] MEDS ORDERED: AMINO ACIDS IV SCH (12:00)
[2018-02-14] MEDS ORDERED: DEXTROSE 10% 1,000 ML IV PRN (12:00)
[2018-02-14] MEDS ORDERED: DEXT IV SCH (12:00)
[2018-02-14] MEDS: FLUOROURACIL 1,200 MG in SODIUM CHLORIDE 0.9% 1,000 ML IV SCH (13:29)
[2018-02-14] MEDS ORDERED: SKIN HEALING OINT (AQUAPHOR) 50 GM TUBE TOP PRN (14:25)
[2018-02-14] MEDS: TRACE ELEMENTS (5) 1 ML, MULTIVITAMIN INJ 10 ML in AMINO ACIDS/DEXT/LYTES 4.25-5% 2,000 ML IV SCH (16:42)
[2018-02-14] MEDS: ENOXAPARIN 40 MG/0.4 ML SYRINGE SUBCUT SCH (17:24)
[2018-02-14] MEDS: LORazepam 2 MG/1 ML VIAL IV PRN (20:38)
[2018-02-14] MEDS: FAT EMULSION 20% 250 ML IV SCH (20:55)
[2018-02-15] MEDS: INSULIN REGULAR 100 UNIT/ML SUBCUT SCH ×4 (01:21→19:13)
[2018-02-15] MEDS: POTASSIUM CHLORIDE INJ 40 MEQ in DEXTROSE 5% NACL 0.22% 1,000 ML IV SCH ×2 (01:23→07:45)
[2018-02-15] MEDS: MEPERIDINE 50 MG/1 ML VIAL IV PRN ×5 (01:48→21:36)
[2018-02-15] MEDS: PROPRANOLOL 1 MG/1 ML VIAL IV SCH ×4 (01:49→21:09)
[2018-02-15 06:55] LABS: Calcium 8.5 MG/DL (8.5-10.1); Osmolality,Calculated 284.3 MOS/KG (273-304); Potassium 4.3 MMOL/L (3.5-5.1)
[2018-02-15] MEDS ORDERED: DIAZEPAM 5 MG TABLET PO ONE (07:57)
[2018-02-15] MEDS: fentaNYL 75 MCG/HR PATCH TRANSDERM SCH (09:21)
[2018-02-15] MEDS: LORazepam 2 MG/1 ML VIAL IV PRN (10:17)
[2018-02-15 10:42] LABS: Hematocrit 23.2 VOL% (35.7-47.0); Hemoglobin 7.7 GM/DL (12.0-16.0); Immature Granulocytes % 0.7 %; Immature Granulocytes Absolute 0.08 #; Lymphocytes # 0.9 10*3/uL (1.4-4.0); Lymphocytes % 8.1 % (21.3-54.2); Mean Corpuscular HGB Conc 33.2 GM/DL (32-36); Mean Corpuscular Hemoglobin 33 PG (27-34); Mean Corpuscular Volume 98.7 FL (87-102); Mean Platelet Volume 11.4 FL (9.6-12.0); Monocytes # 0.4 10*3/uL (0.11-0.8); Monocytes % 3.8 % (1.7-12.7); Neutrophils # 9.6 10*3/uL (1.4-7.4); Neutrophils % 87.4 % (38.7-73.9); Platelet Count 180 T/CUMM (130-400); Red Blood Count 2.35 MC/CUMM (3.8-5.5); Red Cell Distribution Width 15.1 % (9.3-17.3)
[2018-02-15] MEDS: ENOXAPARIN 40 MG/0.4 ML SYRINGE SUBCUT SCH (15:42)
[2018-02-15] MEDS ORDERED: TRACE ELEMENTS (5) 1 ML, MULTIVITAMIN INJ 10 ML in AMINO ACIDS/DEXT/LYTE 4.25-15% 2,000 ML IV SCH (17:00)
[2018-02-15] MEDS: TRACE ELEMENTS (5) 1 ML, MULTIVITAMIN INJ 10 ML in AMINO ACIDS/DEXT/LYTES 4.25-5% 2,000 ML IV SCH (17:42)
[2018-02-15] MEDS: FAT EMULSION 20% 250 ML IV SCH (18:50)
[2018-02-16] MEDS: INSULIN REGULAR 100 UNIT/ML SUBCUT SCH ×4 (01:04→17:49)
[2018-02-16] MEDS: PROPRANOLOL 1 MG/1 ML VIAL IV SCH ×4 (03:19→20:24)
[2018-02-16 05:24] LABS: Calcium 8.1 MG/DL (8.5-10.1); Osmolality,Calculated 276.7 MOS/KG (273-304); Potassium 3.4 MMOL/L (3.5-5.1)
[2018-02-16 06:51] LABS: Basophils % 0.2 % (0.0-0.8); Eosinophils # 0.1 10*3/uL (0.0-0.87); Eosinophils % 0.9 % (0.00-10.9); Hematocrit 23.1 VOL% (35.7-47.0); Hemoglobin 7.7 GM/DL (12.0-16.0); Immature Granulocytes % 0.7 %; Immature Granulocytes Absolute 0.04 #; Lymphocytes # 1.3 10*3/uL (1.4-4.0); Lymphocytes % 22.5 % (21.3-54.2); Mean Corpuscular HGB Conc 33.3 GM/DL (32-36); Mean Corpuscular Hemoglobin 33 PG (27-34); Mean Corpuscular Volume 99.6 FL (87-102); Monocytes # 0.1 10*3/uL (0.11-0.8); Monocytes % 1.9 % (1.7-12.7); Neutrophils # 4.3 10*3/uL (1.4-7.4); Neutrophils % 73.8 % (38.7-73.9); Platelet Count 177 T/CUMM (130-400); Red Blood Count 2.32 MC/CUMM (3.8-5.5); Red Cell Distribution Width 15.1 % (9.3-17.3); White Blood Count 5.8 T/CUMM (4-12)
[2018-02-16] MEDS: ONDANSETRON 4 MG/2 ML VIAL IV PRN ×2 (11:28→17:28)
[2018-02-16] MEDS: POTASSIUM CHLORIDE RIDER 10 MEQ in PREMIX 1 EACH IV PRN ×3 (11:34→14:02)
[2018-02-16] MEDS: ENOXAPARIN 40 MG/0.4 ML SYRINGE SUBCUT SCH (14:05)
[2018-02-16] MEDS: TRACE ELEMENTS (5) 1 ML, MULTIVITAMIN INJ 10 ML in AMINO ACIDS/DEXT/LYTE 4.25-15% 2,000 ML IV SCH (16:51)
[2018-02-16] MEDS: FAT EMULSION 20% 250 ML IV SCH (16:56)
[2018-02-16] MEDS: PROMETHAZINE INJ 25 MG in SODIUM CHLORIDE 0.9% 50 ML IV PRN (20:31)
[2018-02-16] MEDS: MEPERIDINE 50 MG/1 ML VIAL IV PRN (20:40)
[2018-02-17] MEDS: INSULIN REGULAR 100 UNIT/ML SUBCUT SCH ×4 (00:50→17:00)
[2018-02-17] MEDS: PROPRANOLOL 1 MG/1 ML VIAL IV SCH ×4 (03:12→21:20)
[2018-02-17] MEDS: ONDANSETRON 4 MG/2 ML VIAL IV PRN ×3 (03:14→13:11)
[2018-02-17] MEDS: MEPERIDINE 50 MG/1 ML VIAL IV PRN ×3 (03:15→21:43)
[2018-02-17 05:57] LABS: Basophils % 0.2 % (0.0-0.8); Eosinophils # 0.1 10*3/uL (0.0-0.87); Eosinophils % 1.2 % (0.00-10.9); Hematocrit 25.2 VOL% (35.7-47.0); Hemoglobin 8.3 GM/DL (12.0-16.0); Immature Granulocytes % 0.6 %; Immature Granulocytes Absolute 0.03 #; Lymphocytes # 1.2 10*3/uL (1.4-4.0); Lymphocytes % 23.7 % (21.3-54.2); Mean Corpuscular HGB Conc 32.9 GM/DL (32-36); Mean Corpuscular Hemoglobin 32 PG (27-34); Mean Corpuscular Volume 96.2 FL (87-102); Monocytes # 0.1 10*3/uL (0.11-0.8); Monocytes % 1.4 % (1.7-12.7); Neutrophils # 3.6 10*3/uL (1.4-7.4); Neutrophils % 72.9 % (38.7-73.9); Platelet Count 158 T/CUMM (130-400); Red Blood Count 2.62 MC/CUMM (3.8-5.5); Red Cell Distribution Width 14.8 % (9.3-17.3); White Blood Count 4.9 T/CUMM (4-12)
[2018-02-17 06:15] LABS: Calcium 7.8 MG/DL (8.5-10.1); Osmolality,Calculated 278.5 MOS/KG (273-304); Potassium 3.6 MMOL/L (3.5-5.1)
[2018-02-17] MEDS: PROMETHAZINE INJ 25 MG in SODIUM CHLORIDE 0.9% 50 ML IV PRN (10:11)
[2018-02-17] MEDS: POTASSIUM CHLORIDE RIDER 10 MEQ in PREMIX 1 EACH IV PRN (10:50)
[2018-02-17] MEDS: ENOXAPARIN 40 MG/0.4 ML SYRINGE SUBCUT SCH (14:05)
[2018-02-17] MEDS: FAT EMULSION 20% 250 ML IV SCH (14:06)
[2018-02-17] MEDS: TRACE ELEMENTS (5) 1 ML, MULTIVITAMIN INJ 10 ML in AMINO ACIDS/DEXT/LYTE 4.25-15% 2,000 ML IV SCH (14:06)
[2018-02-18] MEDS: INSULIN REGULAR 100 UNIT/ML SUBCUT SCH ×4 (00:54→18:13)
[2018-02-18] MEDS: PROPRANOLOL 1 MG/1 ML VIAL IV SCH ×4 (01:48→21:00)
[2018-02-18] MEDS: MEPERIDINE 50 MG/1 ML VIAL IV PRN ×2 (03:01→18:48)
[2018-02-18 04:47] LABS: Basophils % 0.3 % (0.0-0.8); Eosinophils % 0.5 % (0.00-10.9); Hematocrit 24.1 VOL% (35.7-47.0); Immature Granulocytes % 0.5 %; Immature Granulocytes Absolute 0.02 #; Lymphocytes # 1.1 10*3/uL (1.4-4.0); Lymphocytes % 30.2 % (21.3-54.2); Mean Corpuscular HGB Conc 33.2 GM/DL (32-36); Mean Corpuscular Hemoglobin 32 PG (27-34); Mean Corpuscular Volume 97.6 FL (87-102); Mean Platelet Volume 10.9 FL (9.6-12.0); Monocytes # 0.1 10*3/uL (0.11-0.8); Monocytes % 1.6 % (1.7-12.7); Neutrophils # 2.5 10*3/uL (1.4-7.4); Neutrophils % 66.9 % (38.7-73.9); Platelet Count 137 T/CUMM (130-400); Red Blood Count 2.47 MC/CUMM (3.8-5.5); Red Cell Distribution Width 14.3 % (9.3-17.3); White Blood Count 3.7 T/CUMM (4-12)
[2018-02-18] MEDS: fentaNYL 75 MCG/HR PATCH TRANSDERM SCH (08:59)
[2018-02-18] MEDS: fentaNYL 100 MCG/HR PATCH TRANSDERM SCH (10:40)
[2018-02-18] MEDS: TRACE ELEMENTS (5) 1 ML, MULTIVITAMIN INJ 10 ML in AMINO ACIDS/DEXT/LYTE 4.25-15% 2,000 ML IV SCH (10:40)
[2018-02-18] MEDS: ENOXAPARIN 40 MG/0.4 ML SYRINGE SUBCUT SCH (16:30)
[2018-02-18] MEDS: FAT EMULSION 20% 250 ML IV SCH (16:30)
[2018-02-19] MEDS: MEPERIDINE 50 MG/1 ML VIAL IV PRN ×2 (00:48→08:10)
[2018-02-19] MEDS: INSULIN REGULAR 100 UNIT/ML SUBCUT SCH ×4 (01:03→18:01)
[2018-02-19] MEDS: PROPRANOLOL 1 MG/1 ML VIAL IV SCH ×4 (02:10→20:34)
[2018-02-19] MEDS: TRACE ELEMENTS (5) 1 ML, MULTIVITAMIN INJ 10 ML in AMINO ACIDS/DEXT/LYTE 4.25-15% 2,000 ML IV SCH (07:40)
[2018-02-19 10:31] LABS: Eosinophils % 1.2 % (0.00-10.9); Hematocrit 23.7 VOL% (35.7-47.0); Hemoglobin 7.7 GM/DL (12.0-16.0); Immature Granulocytes % 1.2 %; Immature Granulocytes Absolute 0.04 #; Lymphocytes # 0.9 10*3/uL (1.4-4.0); Lymphocytes % 27.8 % (21.3-54.2); Mean Corpuscular HGB Conc 32.5 GM/DL (32-36); Mean Corpuscular Hemoglobin 32 PG (27-34); Mean Corpuscular Volume 98.3 FL (87-102); Mean Platelet Volume 10.5 FL (9.6-12.0); Monocytes # 0.1 10*3/uL (0.11-0.8); Monocytes % 2.7 % (1.7-12.7); Neutrophils # 2.3 10*3/uL (1.4-7.4); Neutrophils % 67.1 % (38.7-73.9); Platelet Count 119 T/CUMM (130-400); Red Blood Count 2.41 MC/CUMM (3.8-5.5); Red Cell Distribution Width 14.2 % (9.3-17.3); White Blood Count 3.4 T/CUMM (4-12)
[2018-02-19 10:52] LABS: Albumin 2.1 G/DL (3.4-5.0); Bilirubin,Total 0.6 MG/DL (0.2-1.0); Calcium 7.9 MG/DL (8.5-10.1); Osmolality,Calculated 268.4 MOS/KG (273-304); Potassium 3.5 MMOL/L (3.5-5.1); Total Protein 5.6 G/DL (6.4-8.3)
[2018-02-19] MEDS: FAT EMULSION 20% 250 ML IV SCH (14:30)
[2018-02-19] MEDS: ENOXAPARIN 40 MG/0.4 ML SYRINGE SUBCUT SCH (14:30)
[2018-02-20] MEDS: INSULIN REGULAR 100 UNIT/ML SUBCUT SCH ×4 (00:21→17:59)
[2018-02-20] MEDS: MEPERIDINE 50 MG/1 ML VIAL IV PRN ×6 (00:33→23:34)
[2018-02-20] MEDS: PROPRANOLOL 1 MG/1 ML VIAL IV SCH ×4 (01:11→20:59)
[2018-02-20 05:08] LABS: Eosinophils % 0.7 % (0.00-10.9); Hematocrit 23.8 VOL% (35.7-47.0); Hemoglobin 7.9 GM/DL (12.0-16.0); Immature Granulocytes % 1.4 %; Immature Granulocytes Absolute 0.06 #; Lymphocytes % 23.5 % (21.3-54.2); Mean Corpuscular HGB Conc 33.2 GM/DL (32-36); Mean Corpuscular Hemoglobin 32 PG (27-34); Mean Corpuscular Volume 97.1 FL (87-102); Mean Platelet Volume 10.7 FL (9.6-12.0); Monocytes # 0.1 10*3/uL (0.11-0.8); Monocytes % 2.6 % (1.7-12.7); Neutrophils % 71.8 % (38.7-73.9); Platelet Count 126 T/CUMM (130-400); Red Blood Count 2.45 MC/CUMM (3.8-5.5); Red Cell Distribution Width 14.1 % (9.3-17.3); White Blood Count 4.2 T/CUMM (4-12)
[2018-02-20 05:34] LABS: Calcium 8.1 MG/DL (8.5-10.1); Potassium 3.7 MMOL/L (3.5-5.1)
[2018-02-20] MEDS: TRACE ELEMENTS (5) 1 ML, MULTIVITAMIN INJ 10 ML in AMINO ACIDS/DEXT/LYTE 4.25-15% 2,000 ML IV SCH ×2 (05:37→15:36)
[2018-02-20] MEDS: FAT EMULSION 20% 250 ML IV SCH (14:27)
[2018-02-20] MEDS: ENOXAPARIN 40 MG/0.4 ML SYRINGE SUBCUT SCH (17:14)
[2018-02-21] MEDS: TRACE ELEMENTS (5) 1 ML, MULTIVITAMIN INJ 10 ML in AMINO ACIDS/DEXT/LYTE 4.25-15% 2,000 ML IV SCH (01:04)
[2018-02-21] MEDS: INSULIN REGULAR 100 UNIT/ML SUBCUT SCH ×3 (01:06→11:22)
[2018-02-21] MEDS: PROPRANOLOL 1 MG/1 ML VIAL IV SCH ×2 (02:55→08:50)
[2018-02-21] MEDS: MEPERIDINE 50 MG/1 ML VIAL IV PRN ×2 (05:32→11:26)
[2018-02-21] MEDS: fentaNYL 100 MCG/HR PATCH TRANSDERM SCH (08:51)
[2018-02-21] MEDS: ONDANSETRON 4 MG/2 ML VIAL IV PRN (11:34)
[2018-02-21 11:49] VITALS: BP 124/80
[2018-02-21] MEDS: MORPHINE 10 MG/1 ML VIAL IV PRN (13:17)
== END 2018-02-21 13:29 | disposition home health service (06) | DRG 240 ==
LOC: N.ED 10:04 → SUATTDRO 14:45 → N.EDINP 14:45 → N.4E 16:41
PROVIDERS: ADMIT Internal Medicine Cardiovascular Disease; ATTEND Family Medicine
PROC: [UNRECOGNIZED PROCEDURE] (2018-02-15 09:35)

== ENCOUNTER 2018-02-24 11:38 | Observation (INO) ==
[2018-02-24] MEDS ORDERED: PANTOPRAZOLE 40 MG VIAL IV STA (12:01)
[2018-02-24] MEDS ORDERED: SODIUM CHLORIDE 0.9% 1,000 ML IV STA (12:01)
[2018-02-24] MEDS ORDERED: ONDANSETRON 4 MG/2 ML VIAL IV STA ×3 (12:01→15:00)
[2018-02-24] MEDS ORDERED: ONDANSETRON 4 MG/2 ML VIAL ONE ×3 (12:16→15:02)
[2018-02-24] MEDS ORDERED: PANTOPRAZOLE 40 MG VIAL IV ONE (12:16)
[2018-02-24 12:43] LABS: Basophils % 0.6 % (0.0-0.8); Eosinophils % 0.6 % (0.00-10.9); Hematocrit 26.2 VOL% (35.7-47.0); Hemoglobin 8.7 GM/DL (12.0-16.0); Immature Granulocytes % 0.6 %; Immature Granulocytes Absolute 0.01 #; Lymphocytes # 0.7 10*3/uL (1.4-4.0); Lymphocytes % 40.7 % (21.3-54.2); Mean Corpuscular HGB Conc 33.2 GM/DL (32-36); Mean Corpuscular Hemoglobin 32 PG (27-34); Mean Platelet Volume 11.2 FL (9.6-12.0); Monocytes # 0.3 10*3/uL (0.11-0.8); Monocytes % 17.9 % (1.7-12.7); Neutrophils # 0.6 10*3/uL (1.4-7.4); Neutrophils % 39.6 % (38.7-73.9); Platelet Count 197 T/CUMM (130-400); Red Blood Count 2.73 MC/CUMM (3.8-5.5); Red Cell Distribution Width 14.6 % (9.3-17.3); White Blood Count 1.6 T/CUMM (4-12)
[2018-02-24 12:57] LABS: Alanine Aminotransferase 21 U/L (13-56); Albumin 2.4 G/DL (3.4-5.0); Alkaline Phosphatase 148 U/L (45-117); Aspartate Amino Transferase 17 U/L (0-37); Blood Urea Nitrogen 12 MG/DL (7-18); Calcium 8.5 MG/DL (8.5-10.1); Glucose 147 MG/DL (74-106); INR 1.2; Osmolality,Calculated 262.8 MOS/KG (273-304); PT Patient Result 12.6 SECS; Partial Thromboplastin Time 26.9 SECS (0-40); Potassium 3.6 MMOL/L (3.5-5.1); Sodium 130 MMOL/L (136-145); Total Protein 6.9 G/DL (6.4-8.3); Troponin I Only < 0.015 NG/ML (0.00-0.045)
[2018-02-24] MEDS ORDERED: MORPHINE 4 MG/1 ML VIAL IV STA (13:08)
[2018-02-24] MEDS ORDERED: MORPHINE 4 MG/1 ML VIAL ONE (13:11)
[2018-02-24] MEDS ORDERED: HYDROmorphone 2 MG/1 ML VIAL IV STA (15:00)
[2018-02-24] MEDS ORDERED: ONDANSETRON 4 MG/2 ML VIAL IV PRN (15:01)
[2018-02-24] MEDS ORDERED: HYDROmorphone 2 MG/1 ML VIAL ONE (15:02)
[2018-02-24 15:23] LABS: Band Neutrophils 3 % (0-10); Eosinophils 3 % (0-10); Lymphocytes 28 % (20-55); Nucleated Red Blood Cells 1 (0-5); Platelet Estimate Adequate; Polychromasia Slight; Segmented Neutrophils 39 % (50-85); Total Cells Counted 100
[2018-02-24] MEDS ORDERED: fentaNYL 100 MCG/HR PATCH TRANSDERM SCH (15:30)
[2018-02-24] MEDS ORDERED: fentaNYL 25 MCG/HR PATCH TRANSDERM SCH (15:30)
[2018-02-24] MEDS ORDERED: HYDROmorphone 2 MG/1 ML VIAL IV SCH (15:30)
[2018-02-24] MEDS ORDERED: MORPHINE 10 MG/5 ML UDCUP PO PRN (15:37)
[2018-02-24] MEDS: HYDROmorphone 2 MG/1 ML VIAL IV PRN ×3 (17:15→21:21)
[2018-02-25] MEDS: HYDROmorphone 2 MG/1 ML VIAL IV PRN ×9 (00:27→20:50)
[2018-02-25] MEDS ORDERED: DEXTROSE 10% 1,000 ML IV PRN (07:55)
[2018-02-25] MEDS: LORazepam 2 MG/1 ML VIAL IV PRN (11:32)
[2018-02-25] MEDS ORDERED: SODIUM CHLORIDE 0.9% 1,000 ML IV ONE (11:43)
[2018-02-25] MEDS ORDERED: fentaNYL 25 MCG/HR PATCH TRANSDERM SCH (12:00)
[2018-02-25] MEDS ORDERED: fentaNYL 100 MCG/HR PATCH TRANSDERM SCH (12:00)
[2018-02-25] MEDS: MORPHINE 10 MG/5 ML UDCUP PO SCH ×4 (13:02→20:46)
[2018-02-25] MEDS: TRACE ELEMENTS (5) 1 ML, MULTIVITAMIN INJ 10 ML in AMINO ACIDS/DEXT/LYTE 4.25-15% 2,000 ML IV SCH (14:21)
[2018-02-25] MEDS: FAT EMULSION 20% 250 ML IV SCH (14:22)
[2018-02-26] MEDS: HYDROmorphone 2 MG/1 ML VIAL IV PRN ×3 (00:15→16:00)
[2018-02-26] MEDS: LORazepam 2 MG/1 ML VIAL IV PRN (02:34)
[2018-02-26] MEDS: MORPHINE 10 MG/5 ML UDCUP PO SCH ×3 (05:47→13:28)
[2018-02-26] MEDS ORDERED: fentaNYL 25 MCG/HR PATCH TRANSDERM SCH (10:00)
[2018-02-26] MEDS ORDERED: fentaNYL 50 MCG/HR PATCH TRANSDERM SCH (10:00)
[2018-02-26] MEDS: TRACE ELEMENTS (5) 1 ML, MULTIVITAMIN INJ 10 ML in AMINO ACIDS/DEXT/LYTE 4.25-15% 2,000 ML IV SCH (12:29)
[2018-02-26] MEDS: FAT EMULSION 20% 250 ML IV SCH (14:46)
[2018-02-26] MEDS: MORPHINE 10 MG/5 ML UDCUP PO PRN ×2 (18:03→21:09)
[2018-02-27] MEDS: LORazepam 2 MG/1 ML VIAL IV PRN (00:45)
[2018-02-27] MEDS: HYDROmorphone 2 MG/1 ML VIAL IV PRN ×3 (00:45→13:15)
[2018-02-27 06:08] LABS: Calcium 8.9 MG/DL (8.5-10.1); Osmolality,Calculated 256.4 MOS/KG (273-304); Potassium 3.6 MMOL/L (3.5-5.1); Prealbumin 10.2 MG/DL (20-40)
[2018-02-27] MEDS ORDERED: SODIUM CHLORIDE 0.9% 1,000 ML IV ONE (09:05)
[2018-02-27 12:04] VITALS: BP 115/63
[2018-02-27] MEDS: TRACE ELEMENTS (5) 1 ML, MULTIVITAMIN INJ 10 ML in AMINO ACIDS/DEXT/LYTE 4.25-15% 2,000 ML IV SCH (14:55)
[2018-02-27] MEDS: FAT EMULSION 20% 250 ML IV SCH (14:56)
== END 2018-02-27 14:40 | disposition home health service (06) ==
LOC: EDUNIT# → EDBD → N.ED 11:38 → N.EDINP 11:38 → SUATTDRO 15:01 → N.4E 16:00
PROVIDERS: ADMIT Family Medicine; ATTEND Internal Medicine

== ENCOUNTER 2018-03-03 16:14 | Inpatient (IN) ==
[2018-03-03] MEDS ORDERED: PIPERACILLIN/TAZOBACTAM 3,375 MG in SODIUM CHLORIDE 0.9% 100 ML IV STA (17:17)
[2018-03-03] MEDS ORDERED: VANCOMYCIN INJ 1,250 MG in SODIUM CHLORIDE 0.9% 250 ML IV STA (17:17)
[2018-03-03] MEDS ORDERED: SODIUM CHLORIDE 0.9% 2,000 ML IV STA (17:17)
[2018-03-03] MEDS ORDERED: PIPERACILLIN/TAZOBACTAM 3,375 MG VIAL IV ONE (17:39)
[2018-03-03] MEDS ORDERED: VANCOMYCIN 1,000 MG VIAL ONE (17:39)
[2018-03-03 18:10] LABS: Basophils # 0.1 10*3/uL (0.0-0.2); Basophils % 0.3 % (0.0-0.8); Hematocrit 19.7 VOL% (35.7-47.0); Hemoglobin 6.9 GM/DL (12.0-16.0); Immature Granulocytes % 4.1 %; Immature Granulocytes Absolute 1.11 #; Lymphocytes # 0.6 10*3/uL (1.4-4.0); Lymphocytes % 2.2 % (21.3-54.2); Mean Corpuscular Hemoglobin 31 PG (27-34); Mean Corpuscular Volume 87.6 FL (87-102); Monocytes # 1.4 10*3/uL (0.11-0.8); Monocytes % 5.1 % (1.7-12.7); NRBC # 0.08 10*3/uL; Neutrophils # 23.8 10*3/uL (1.4-7.4); Neutrophils % 88.3 % (38.7-73.9); Platelet Count 125 T/CUMM (130-400); Red Blood Count 2.25 MC/CUMM (3.8-5.5); Red Cell Distribution Width 15.2 % (9.3-17.3); White Blood Count 26.9 T/CUMM (4-12)
[2018-03-03 18:29] LABS: Lactic Acid 3.3 MMOL/L (0.4-2.0)
[2018-03-03 18:30] LABS: Alanine Aminotransferase 133 U/L (13-56); Albumin 1.8 G/DL (3.4-5.0); Alkaline Phosphatase 262 U/L (45-117); Aspartate Amino Transferase 175 U/L (0-37); Blood Urea Nitrogen 38 MG/DL (7-18); Calcium 8.2 MG/DL (8.5-10.1); Glucose 103 MG/DL (74-106); Osmolality,Calculated 265.1 MOS/KG (273-304); Potassium 2.7 MMOL/L (3.5-5.1); Sodium 128 MMOL/L (136-145); Total Protein 6.9 G/DL (6.4-8.3)
[2018-03-03 18:48] LABS: Band Neutrophils 2 % (0-10); Lymphocytes 3 % (20-55); Total Cells Counted 100
[2018-03-03 18:49] LABS: Hypochromasia 2+; Ovalocytes 1+; Platelet Estimate Decreased; Segmented Neutrophils 90 % (50-85); Target Cells 1+
[2018-03-03] MEDS ORDERED: SODIUM CHLORIDE 0.9% 1,000 ML IV ONE (19:32)
[2018-03-03] MEDS ORDERED: ACETAMINOPHEN 325 MG TABLET PO PRN (19:32)
[2018-03-03] MEDS ORDERED: MORPHINE 4 MG/1 ML VIAL IV PRN (19:37)
[2018-03-03] MEDS ORDERED: MAGNESIUM SULF RIDER 2 GM in PREMIX 1 EACH IV PRN (19:46)
[2018-03-03] MEDS ORDERED: MAGNESIUM SULF RIDER 4 GM in PREMIX 1 EACH IV PRN (19:46)
[2018-03-03] MEDS ORDERED: SODIUM CHLORIDE 0.9% 1,000 ML IV PRN (19:51)
[2018-03-03 20:03] LABS: Urine Color Orange (Yellow)
[2018-03-03 20:04] LABS: Apearance,Urine Clear (Clear); Bilirubin,Urine 4 mg/dL (Negative); Blood, Urine Negative (Negative); Glucose,Urine (UA) 50 mg/dL (Negative); Ketones,Urine Negative (Negative); Nitrite,Urine Negative (Negative); Protein,Urine 30 MG/DL
[2018-03-03 20:05] LABS: Bacteria,Urine Few /HPF (Few); RBC,Urine 0-1 /HPF (0-4); WBC,Urine 0-2 /HPF (0-6)
[2018-03-03] MEDS ORDERED: ONDANSETRON 4 MG/2 ML VIAL ONE (20:56)
[2018-03-03] MEDS ORDERED: ENOXAPARIN 30 MG/0.3 ML SYRINGE ONE (20:57)
[2018-03-03] MEDS ORDERED: MORPHINE 4 MG/1 ML VIAL ONE (20:57)
[2018-03-03] MEDS: ONDANSETRON 4 MG/2 ML VIAL IV PRN (21:10)
[2018-03-03] MEDS: SODIUM CHLORIDE 0.9% 1,000 ML IV SCH (21:13)
[2018-03-03] MEDS ORDERED: FLUCONAZOLE INJ 400 MG in PREMIX 1 EACH IV SCH (22:00)
[2018-03-03 22:29] LABS: Lactic Acid 2.3 MMOL/L (0.4-2.0)
[2018-03-03] MEDS ORDERED: ENOXAPARIN 100 MG/ML SYRINGE SUBCUT ONE (22:50)
[2018-03-03] MEDS: HYDROmorphone 2 MG/1 ML VIAL IV PRN (23:24)
[2018-03-04] MEDS: PIPERACILLIN/TAZOBACTAM 3,375 MG in SODIUM CHLORIDE 0.9% 100 ML IV SCH ×3 (00:36→17:54)
[2018-03-04 01:28] LABS: Basophils # 0.1 10*3/uL (0.0-0.2); Basophils % 0.3 % (0.0-0.8); Immature Granulocytes % 3.8 %; Immature Granulocytes Absolute 1.19 #; Lymphocytes # 0.8 10*3/uL (1.4-4.0); Lymphocytes % 2.4 % (21.3-54.2); Mean Corpuscular HGB Conc 34.5 GM/DL (32-36); Mean Corpuscular Hemoglobin 30 PG (27-34); Mean Corpuscular Volume 88.1 FL (87-102); Mean Platelet Volume 12.9 FL (9.6-12.0); Monocytes # 1.6 10*3/uL (0.11-0.8); NRBC # 0.06 10*3/uL; Neutrophils # 27.6 10*3/uL (1.4-7.4); Neutrophils % 88.5 % (38.7-73.9); Platelet Count 107 T/CUMM (130-400); Red Blood Count 1.94 MC/CUMM (3.8-5.5); Red Cell Distribution Width 15.4 % (9.3-17.3); White Blood Count 31.1 T/CUMM (4-12)
[2018-03-04 01:32] LABS: Hemoglobin 5.9 GM/DL (12.0-16.0)
[2018-03-04 01:33] LABS: Hematocrit 17.1 VOL% (35.7-47.0)
[2018-03-04 02:00] LABS: Albumin 1.5 G/DL (3.4-5.0); Bilirubin,Total 3.6 MG/DL (0.2-1.0); Calcium 7.1 MG/DL (8.5-10.1); Osmolality,Calculated 274.2 MOS/KG (273-304); Potassium 2.8 MMOL/L (3.5-5.1); Total Protein 5.8 G/DL (6.4-8.3)
[2018-03-04 02:07] LABS: Band Neutrophils 2 % (0-10); Lymphocytes 12 % (20-55); Platelet Estimate Decreased; Segmented Neutrophils 84 % (50-85); Total Cells Counted 100
[2018-03-04] MEDS: MORPHINE 4 MG/1 ML VIAL IV PRN ×2 (04:02→13:35)
[2018-03-04] MEDS: SODIUM CHLORIDE 0.9% 1,000 ML IV SCH ×2 (05:40→14:15)
[2018-03-04] MEDS: PANTOPRAZOLE 40 MG VIAL IV SCH (08:42)
[2018-03-04] MEDS ORDERED: VANCOMYCIN INJ 1,000 MG in SODIUM CHLORIDE 0.9% 250 ML IV ONE (10:30)
[2018-03-04] MEDS: HYDROmorphone 2 MG/1 ML VIAL IV PRN ×2 (10:39→18:33)
[2018-03-04] MEDS ORDERED: CALCIUM GLUCONATE 1,000 MG in SODIUM CHLORIDE 0.9% 100 ML IV ONE (11:00)
[2018-03-04] MEDS: VANCOMYCIN INJ 1,000 MG in SODIUM CHLORIDE 0.9% 250 ML IV SCH (12:33)
[2018-03-04] MEDS: POTASSIUM CHLORIDE RIDER 10 MEQ in PREMIX 1 EACH IV PRN ×5 (14:52→23:30)
[2018-03-04] MEDS ORDERED: ENOXAPARIN 40 MG/0.4 ML SYRINGE SUBCUT SCH (20:00)
[2018-03-05] MEDS: VANCOMYCIN INJ 1,000 MG in SODIUM CHLORIDE 0.9% 250 ML IV SCH (00:43)
[2018-03-05] MEDS: MORPHINE 4 MG/1 ML VIAL IV PRN (01:26)
[2018-03-05] MEDS: PIPERACILLIN/TAZOBACTAM 3,375 MG in SODIUM CHLORIDE 0.9% 100 ML IV SCH ×3 (02:25→18:39)
[2018-03-05] MEDS: HYDROmorphone 2 MG/1 ML VIAL IV PRN ×3 (03:55→15:54)
[2018-03-05 04:50] LABS: Basophils # 0.1 10*3/uL (0.0-0.2); Basophils % 0.3 % (0.0-0.8); Hematocrit 25.2 VOL% (35.7-47.0); Hemoglobin 8.9 GM/DL (12.0-16.0); Immature Granulocytes Absolute 0.79 #; Lymphocytes # 0.8 10*3/uL (1.4-4.0); Mean Corpuscular HGB Conc 35.3 GM/DL (32-36); Mean Corpuscular Hemoglobin 31 PG (27-34); Mean Corpuscular Volume 86.3 FL (87-102); Monocytes # 1.6 10*3/uL (0.11-0.8); NRBC # 0.05 10*3/uL; Neutrophils # 23.3 10*3/uL (1.4-7.4); Neutrophils % 87.7 % (38.7-73.9); Platelet Count 109 T/CUMM (130-400); Red Blood Count 2.92 MC/CUMM (3.8-5.5); White Blood Count 26.5 T/CUMM (4-12)
[2018-03-05 05:12] LABS: Band Neutrophils 1 % (0-10); Giant Platelets Few; Hypochromasia 1+; Lymphocytes 1 % (20-55); Ovalocytes Slight; Platelet Estimate Decreased; Segmented Neutrophils 94 % (50-85); Target Cells Few; Total Cells Counted 100
[2018-03-05 05:36] LABS: Albumin 1.4 G/DL (3.4-5.0); Bilirubin,Total 4.6 MG/DL (0.2-1.0); Calcium 7.8 MG/DL (8.5-10.1); Potassium 3.5 MMOL/L (3.5-5.1)
[2018-03-05] MEDS ORDERED: HEPARIN LOCK FLUSH 500 UNIT/5 ML SYRINGE IV ONE (10:17)
[2018-03-05] MEDS: PANTOPRAZOLE 40 MG VIAL IV SCH (10:29)
[2018-03-05] MEDS: ONDANSETRON 4 MG/2 ML VIAL IV PRN (18:31)
[2018-03-05] MEDS: SODIUM CHLORIDE 0.9% 1,000 ML IV SCH (18:39)
[2018-03-05] MEDS: fentaNYL 100 MCG/2 ML VIAL IV PRN ×2 (21:11→23:28)
[2018-03-06] MEDS: PIPERACILLIN/TAZOBACTAM 3,375 MG in SODIUM CHLORIDE 0.9% 100 ML IV SCH ×2 (01:05→08:46)
[2018-03-06] MEDS: fentaNYL 100 MCG/2 ML VIAL IV PRN ×5 (03:02→23:10)
[2018-03-06 05:15] LABS: Basophils # 0.1 10*3/uL (0.0-0.2); Basophils % 0.2 % (0.0-0.8); Hematocrit 27.3 VOL% (35.7-47.0); Hemoglobin 9.4 GM/DL (12.0-16.0); Immature Granulocytes % 2.7 %; Immature Granulocytes Absolute 0.56 #; Mean Corpuscular HGB Conc 34.4 GM/DL (32-36); Mean Corpuscular Hemoglobin 30 PG (27-34); Mean Corpuscular Volume 87.8 FL (87-102); Mean Platelet Volume 13.1 FL (9.6-12.0); Monocytes # 1.5 10*3/uL (0.11-0.8); Monocytes % 7.3 % (1.7-12.7); NRBC # 0.05 10*3/uL; Neutrophils # 17.7 10*3/uL (1.4-7.4); Neutrophils % 84.8 % (38.7-73.9); Platelet Count 167 T/CUMM (130-400); Red Blood Count 3.11 MC/CUMM (3.8-5.5); Red Cell Distribution Width 16.3 % (9.3-17.3); White Blood Count 20.9 T/CUMM (4-12)
[2018-03-06] MEDS ORDERED: LORazepam 2 MG/1 ML VIAL IV ONE (05:30)
[2018-03-06 05:40] LABS: Band Neutrophils 5 % (0-10); Lymphocytes 6 % (20-55); Segmented Neutrophils 83 % (50-85); Total Cells Counted 100
[2018-03-06 05:41] LABS: Platelet Estimate Normal; Target Cells 1+
[2018-03-06 05:46] LABS: Calcium 8.3 MG/DL (8.5-10.1); Osmolality,Calculated 288.7 MOS/KG (273-304); Potassium 3.4 MMOL/L (3.5-5.1)
[2018-03-06] MEDS: SODIUM CHLORIDE 0.9% 1,000 ML IV SCH ×2 (05:49→19:26)
[2018-03-06] MEDS: PANTOPRAZOLE 40 MG VIAL IV SCH (08:48)
[2018-03-06] MEDS ORDERED: fentaNYL 100 MCG/HR PATCH TRANSDERM SCH (09:00)
[2018-03-06] MEDS ORDERED: fentaNYL 25 MCG/HR PATCH TRANSDERM SCH (09:00)
[2018-03-06] MEDS: CIPROFLOXACIN INJ 400 MG in PREMIX 1 EACH IV SCH ×2 (13:06→20:42)
[2018-03-07] MEDS: ONDANSETRON 4 MG/2 ML VIAL IV PRN ×2 (00:38→05:41)
[2018-03-07] MEDS: fentaNYL 100 MCG/2 ML VIAL IV PRN ×2 (03:35→05:40)
[2018-03-07] MEDS: SODIUM CHLORIDE 0.9% 1,000 ML IV SCH ×3 (04:18→22:04)
[2018-03-07] MEDS ORDERED: HYDROmorphone 2 MG/1 ML VIAL IV PRN (08:31)
[2018-03-07] MEDS ORDERED: fentaNYL 100 MCG/2 ML VIAL IV PRN (08:31)
[2018-03-07] MEDS ORDERED: LORazepam 2 MG/1 ML VIAL IV PRN (08:43)
[2018-03-07] MEDS ORDERED: NALOXONE 0.4 MG/ML VIAL IV PRN ×2 (08:46→11:41)
[2018-03-07] MEDS: PANTOPRAZOLE 40 MG VIAL IV SCH (08:53)
[2018-03-07] MEDS: CIPROFLOXACIN INJ 400 MG in PREMIX 1 EACH IV SCH (08:56)
[2018-03-07] MEDS ORDERED: MORPHINE PCA 30 MG/30 ML SYRINGE IV SCH (12:00)
[2018-03-07] MEDS: LORazepam 2 MG/1 ML VIAL IV PRN (12:50)
[2018-03-07] MEDS: MORPHINE PCA 30 MG/30 ML SYRINGE IV SCH (14:39)
[2018-03-07] MEDS ORDERED: ACETAMINOPHEN 650 MG SUPP RECTAL PRN (16:04)
[2018-03-08] MEDS: MORPHINE PCA 30 MG/30 ML SYRINGE IV SCH ×3 (04:20→17:00)
[2018-03-08] MEDS: SODIUM CHLORIDE 0.9% 1,000 ML IV SCH ×3 (06:07→20:44)
[2018-03-08] MEDS: LORazepam 2 MG/1 ML VIAL IV PRN (18:59)
[2018-03-09] MEDS: LORazepam 2 MG/1 ML VIAL IV PRN ×2 (03:08→09:34)
[2018-03-09] MEDS: SODIUM CHLORIDE 0.9% 1,000 ML IV SCH (05:01)
[2018-03-09] MEDS: MORPHINE PCA 30 MG/30 ML SYRINGE IV SCH ×3 (06:18→16:13)
[2018-03-09] MEDS ORDERED: MORPHINE PCA 30 MG/30 ML SYRINGE IV SCH (08:40)
[2018-03-09] MEDS ORDERED: fentaNYL 100 MCG/HR PATCH TRANSDERM SCH (11:00)
[2018-03-09] MEDS ORDERED: fentaNYL 25 MCG/HR PATCH TRANSDERM SCH (11:30)
[2018-03-10] MEDS: LORazepam 2 MG/1 ML VIAL IV PRN (01:43)
[2018-03-10] MEDS: SODIUM CHLORIDE 0.9% 1,000 ML IV SCH ×2 (03:22→10:42)
[2018-03-10] MEDS: MORPHINE PCA 30 MG/30 ML SYRINGE IV SCH ×2 (03:26→11:20)
[2018-03-10] MEDS ORDERED: TUBERCULIN SKIN TEST 0.1 ML SYRINGE INTRADERM ONE (06:55)
[2018-03-10 08:01] VITALS: BP 168/98
[2018-03-10] MEDS ORDERED: SCOPOLAMINE 1.5 MG PATCH TRANSDERM SCH (09:00)
[2018-03-10] MEDS ORDERED: ONDANSETRON 4 MG/2 ML VIAL IV PRN (09:37)
[2018-03-10] MEDS ORDERED: HEPARIN LOCK FLUSH 500 UNIT/5 ML SYRINGE IV ONE (10:46)
== END 2018-03-10 11:20 | DRG 720 ==
LOC: EDUNIT# → EDBD → N.ED 16:14 → N.EDINP 19:49 → SUATTDRO 19:49 → N.4E 20:39
PROVIDERS: ADMIT Internal Medicine